=== PATIENT | female | born 2000 | race Caucasian/White ===

== ENCOUNTER 2020-05-09 06:11 | Emergency (ER) | payer BC ==
[2020-05-09 07:22] LABS: HEMOGLOBIN 14.3 gm/dl (12.3-15.3); RED BLOOD COUNT 5.59 M/UL (4.00-5.10); WHITE BLOOD COUNT 7.8 K/UL (4.5-11.0)
[2020-05-09 07:37] LABS: BUN/CREATININE RATIO 13 (0-10)
[2020-05-09] MEDS ORDERED: AMOXICILLIN500 M1 PO (09:03)
== END 2020-05-09 09:21 | disposition home or self-care (01) ==
LOC: ER1 06:11
PROVIDERS: Family Medicine
DX: I88.0 Nonspecific mesenteric lymphadenitis (principal)
CPT/HCPCS: 80053; 83690; 84703; 85025; 99284; Q9967